=== PATIENT | female | born 1960 | race American Indian/Alaskan Native ===

== ENCOUNTER 2020-05-29 23:50 | Emergency (ER) | payer MEDICARE ==
--- NOTE | 2020-05-30 00:38 | Emergency Department Report ---
ED Female HPI - General Stated complaint: VAGINAL DISCHARGE/ODOR Time Seen by Provider: 05/30/20 00:38 Source: patient Mode of arrival: Ambulatory Limitations: No Limitations - History of Present Illness Initial comments: Patient is a 60-year-old female presents emergency room with complaints of vaginal odor that began on 05/07/2020. She states that she also has a clear disc harge. She states that she went to her primary care doctor and was started on Flagyl. She states that it does not appear to be helping and she still has an odor. She denies any itching, burning, pelvic pain, abdominal pain, back pain, dysuria, urinary frequency, dark urine. She states that she is not sexually active and has no concerns for STDs. She denies any history of diabetes and denies any itching. She denies any medication allergies. - Related Data Previous Rx's Medication Instructions Recorded Last Taken Type metroNIDAZOLE [metroNIDAZOLE 5 gm VG QHS 7 Days #1 gel.w.appl 05/30/20 Unknown Rx VAGINAL 0.75% gel] Allergies Allergy/AdvReac Type Severity Reaction Status Date / Time No Known Allergies Allergy Unverified 05/30/20 00:59 ED Review of Systems ROS: Stated complaint: VAGINAL DISCHARGE/ODOR Other details as noted in HPI Comment: All other systems reviewed and negative ED Past Medical Hx - Medications Home Medications: Home Medications Medication Instructions Recorded Confirmed Last Taken Type metroNIDAZOLE [metroNIDAZOLE 5 gm VG QHS 7 Days #1 gel.w.appl 05/30/20 Unknown Rx VAGINAL 0.75% gel] ED Physical Exam - General Limitations: No Limitations General appearance: alert, in no apparent distress - Head Head exam: Present: atraumatic, normocephalic - Eye Eye exam: Present: normal appearance - ENT ENT exam: Present: mucous membranes moist - Respiratory Respiratory exam: Present: normal lung sounds bilaterally. Absent: respiratory distress, wheezes, rales, rhonchi, stridor, chest wall tenderness, accessory muscle use, decreased breath sounds, prolonged expiratory - Cardiovascular Cardiovascular Exam: Present: regular rate, normal rhythm, normal heart sounds. Absent: systolic murmur, diastolic murmur, rubs, gallop - GI/Abdominal GI/Abdominal exam: Present: soft, normal bowel sounds. Absent: distended, tenderness, guarding, rebound, rigid - Neurological Exam Neurological exam: Present: alert, oriented X3 - Psychiatric Psychiatric exam: Present: normal affect, normal mood - Skin Skin exam: Present: warm, dry, intact ED Course Vital Signs 05/30/20 05/30/20 00:34 00:59 Temperature 99.1 F Pulse Rate 70 Respiratory 16 Rate Blood Pressure 214/88 Blood Pressure 166/78 [Left] O2 Sat by Pulse 99 Oximetry ED Medical Decision Making - Medical Decision Making Patient is a 60-year-old female presents emergency room with complaints of v aginal odor that began on 05/07/2020. She states that she also has a clear discharge. She states that she went to her primary care doctor and was started on Flagyl. She states that it does not appear to be helping and she still has an odor. She denies any itching, burning, pelvic pain, abdominal pain, back pain, dysuria, urinary frequency, dark urine. She states that she is not sexually active and has no concerns for STDs. She denies any history of diabetes and denies any itching. She denies any medication allergies. Initial blood pressure entered incorrectly, on repeat her blood pressure is stable. No abdominal tenderness on exam, no guarding, no rebound, no rigidity, normal bowel sounds, no peritoneal signs. Symptoms likely related to BV/vaginitis. Patient will be given prescription for MetroGel. Patient be referred to [facility]. She has no urinary symptoms to suggest UTI. She is not sexually active, denies concerns for STDs, PID is not suspected. advised pt Please use medication as prescribed. May take probiotics [id number]. May use boric acid suppositories. Follow-up with [facility]. Follow-up with your primary care doctor. Return to emergency room for new or worsening symptoms. Critical care attestation.: If time is entered above; I have spent that time in minutes in the direct care of this critically ill patient, excluding procedure time. ED Disposition Clinical Impression: Vaginal discharge, Vaginal odor Disposition: - TO HOME OR SELFCARE Is pt being admited?: No Does the pt Need Aspirin: No Condition: Stable Instructions: Bacterial Vaginosis, Vaginitis Additional Instructions: Please use medication as prescribed. May take probiotics [id number]. May use boric acid suppositories. Follow-up with [facility]. Follow-up with your primary care doctor. Return to emergency room for new or worsening symptoms. Prescriptions: metroNIDAZOLE [metroNIDAZOLE VAGINAL 0.75% gel] 5 gm VG QHS 7 Days #1 gel.w.appl Referrals: LINN FLOR MD [Primary Care Provider] - 2-3 Days [facility] [Provider Group] - 2-3 Days Time of Disposition: 00:42 Print Language: [place]
[2020-05-30 00:59] VITALS: BP 166/78
== END 2020-05-30 01:00 | disposition home or self-care (01) ==
LOC: ED 23:50
DX: N89.8 Other specified noninflammatory disorders of vagina (principal); Z79.899 Other long term (current) drug therapy
CPT/HCPCS: 99282